=== PATIENT | female | born 2000 | race Caucasian/White ===

== ENCOUNTER 2021-09-13 15:58 | Outpatient (NON) | payer BC, SELFPAY | END 2021-09-13 15:59 | disposition home or self-care (01) | PROVIDERS: Visit Provider Nurse Practitioner Family | DX: Z12.4 Encounter for screening for malignant neoplasm of cervix (principal); Z13.89 Encounter for screening for other disorder | CPT/HCPCS: 87491; 87591; 88175; G0145 ==

== ENCOUNTER 2022-02-28 05:03 | Emergency (ER) | payer BC, SELFPAY ==
[2022-02-28 05:10] VITALS: BP 119/92; PULSE 91; RESP 18; TEMP 36.9; O2SAT 99
[2022-02-28] MEDS: ONDANSETRON HCL ODT 4 MG TABLET PO (05:26)
[2022-02-28] MEDS: ACETAMINOPHEN 500 MG TABLET 1000 MG PO (05:26)
[2022-02-28 05:30] VITALS: O2SAT 96
--- NOTE | 2022-02-28 06:30 | ED.URI ---
HPI - URI/Sore Throat General Chief Complaint: Upper Respiratory Infection Stated Complaint: sore throat, decreased po intake, v/d, body aches Time Seen by Provider: 02/28/22 05:10 History of Present Illness HPI Narrative: 21-year-old female who is unvaccinated for COVID presents here with 1 to 2 days of sore throat, nausea and vomiting and diarrhea, and all over body aches, she has tried taking some Mucinex and Benadryl with only minimal improvement, she is having trouble keeping things down. Unknown sick contacts. Related Data Allergies Allergy/AdvReac Type Severity Reaction Status Date / Time No Known Allergies Allergy Verified 02/21/22 15:18 Review of Systems Review of Systems: CONST: Chills. HEENT: Sore throat C/V: No chest pain RESP: Minimal cough GI: Reports nausea, vomiting[, diarrhea] : No dysuria. M/S: Body aches SKIN: No rash. NEURO: No focal numbness or weakness PSYCH: [No depression] [facility] Past Medical History Medical History (Updated 02/28/22 @ 06:50 by Padma Vega MD) Depression Social History Social History Smoking status: Never smoker Exam Narrative: EXAMINATION OF ORGAN SYSTEMS/BODY AREAS: Constitutional: Vital signs per nursing GENERAL:[No acute distress, non-toxic appearing.] HEAD: Normal with no signs of head trauma. EYES: EOMI, conjunctiva normal ENT: No tonsillar exudates or swelling, normal voice LUNGS: Nonlabored breathing. HEART: [Regular rate and rhythm] ABD: [Soft], [nontender to palpation] EXT: Normal range of motion SKIN: [No rashes or lesions.] NEURO: [Alert and oriented x 3. No gross focal sensory or strength deficits.] PSYCH: Normal affect Course Vital Signs Vital signs: Vital Signs Temperature 98.5 F 02/28/22 05:10 Pulse Rate 91 02/28/22 05:10 Respiratory Rate 18 02/28/22 05:10 Blood Pressure 119/92 H 02/28/22 05:10 Pulse Oximetry 99 02/28/22 05:10 Oxygen Delivery Room Air 02/28/22 05:10 Temperature 98.5 F 02/28/22 05:10 Pulse Rate 91 02/28/22 05:10 Respiratory Rate 18 02/28/22 05:10 Blood Pressure 119/92 H 02/28/22 05:10 Pulse Oximetry 96 02/28/22 05:30 Oxygen Delivery Room Air 02/28/22 05:30 MDM - URI/Sore Throat MDM Narrative Medical decision making narrative: 21-year-old female with several days of symptoms most suggestive of viral syndrome with URI symptoms as well as vomiting and diarrhea. Lungs are clear bilaterally. Patient is treated symptomatically with ondansetron, tylenol. On reevaluation, patient still feels some stomach upset. She is given additional round of medications. Afterwards feels better and tolerating oral intake. COVID and flu are negative. Patient is comfortable going home and discharged home in stable condition with expectant management and return precautions. Procedures: Pulse oximetry interpretation - not hypoxic. Review of medical records. Lab Data Labs: Lab Results 02/28/22 Range/Units 05:58 Influenza A (RT-PCR) Negative (Negative) Influenza B (RT-PCR) Negative (Negative) SARS-CoV-2 RNA (RT-PCR) Negative Discharge Plan Discharge Clinical Impression: Viral illness Patient Disposition: Home, Self-Care Condition: Stable Instructions: Antibiotic Form, Viral Syndrome (ED) Additional Instructions: You can take the prescribed medications to feel better, come back if you are feeling worse, follow-up with her primary care doctor in the next few days. Prescriptions: New ondansetron 4 mg tablet,disintegrating 4 mg PO Q8H PRN (Reason: nausea and vomiting) Qty: 10 0RF famotidine 20 mg tablet 20 mg PO DAILY Qty: 14 0RF acetaminophen [Tylenol Extra Strength] 500 mg tablet 1,000 mg PO Q6H PRN (Reason: fever or pain) Qty: 30 0RF loratadine 10 mg tablet 10 mg PO DAILY Qty: 14 0RF No Action norgestimate-ethinyl estradiol [Tri-Sprintec (28)] 0.18/0.215/0.25 mg-35 mcg
[2022-02-28] MEDS: diphenhydrAMINE HCl CAP 25 MG CAPSULE 50 MG PO (06:34)
[2022-02-28] MEDS: METOCLOPRAMIDE HCL INJ 10 MG/2 ML VIAL IM (06:35)
[2022-02-28 06:40] LABS: Influenza A QL RT-PCR Negative (Negative); Influenza B QL RT-PCR Negative (Negative); SARS-CoV-2 RNA PCR Negative
[2022-02-28 06:51] VITALS: BP 122/94; PULSE 91; RESP 18; O2SAT 97
== END 2022-02-28 06:59 | disposition home or self-care (01) ==
PROVIDERS: Emergency Provider Emergency Medicine; PCP Nurse Practitioner Family
DX: B34.9 Viral infection, unspecified (principal); Z20.822 Contact with and (suspected) exposure to COVID-19; Z28.310 Unvaccinated for COVID-19
CPT/HCPCS: 87502; 96372; 99283; A9270; C9803; J2765; U0003; U0005

== ENCOUNTER 2022-03-01 19:16 | Emergency (ER) | payer BC, SELFPAY ==
[2022-03-01 19:21] VITALS: BP 136/93; PULSE 99; RESP 16; TEMP 37.1; O2SAT 100
--- NOTE | 2022-03-01 19:39 | ED.URI ---
HPI - URI/Sore Throat General Chief Complaint: Upper Respiratory Infection Stated Complaint: Sore throat Time Seen by Provider: 03/01/22 19:25 Source: patient Mode of arrival: ambulatory Limitations: no limitations History of Present Illness HPI Narrative: Ms. Salcido is a 21-year-old female patient presenting to the clinic today with complaints of sore throat x3 days. She reports that today she started to lose her voice when talking. She was seen in the ER 2 days ago and was tested for COVID and influenza for her cold symptoms. She reports that those tests were negative but, they did not test her for strep at that time. She would like to be tested for strep today MD elicited complaint: sore throat and nasal congestion Related Data Allergies Allergy/AdvReac Type Severity Reaction Status Date / Time No Known Allergies Allergy Verified 03/01/22 19:39 Review of Systems Review of Systems: Pertinent positives per HPI. Patient denies any fever, chills, rash, headache, visual changes, dizziness, shortness of breath, chest pain, palpitations, nausea, vomiting, diarrhea, constipation, abdominal pain, or any urinary issues. [facility] Past Medical History Medical History (Updated 03/01/22 @ 19:46 by Morales Zurita APRN) Depression Social History Social History Smoking status: Never smoker Comments At the time of my signature, I reviewed and agree with the nursing past medical, surgical, social, and family history. There is no relevant family history pertinent to the patient complaint. Exam Narrative: General: Well-developed, well nourished, in no apparent distress Head: Normocephalic, atraumatic Eyes: Pupils equally round and reactive to light bilaterally, EOM intact, sclera and conjunctive clear, no discharge, lids normal Ears: TMs intact and clear, ear canals clear, no drainage, grossly hearing normal. Nose: Nares patent, no nasal discharge, mild inflammation, no sinus tenderness. Mouth: Oral pharynx without lesions or masses, good dentition, MMM. Oropharynx red, postnasal drip Neck: Supple, trachea midline, no enlargement of anterior or posterior cervical nodes, no thyroid masses or goiter palpable. Cardio: Regular rate and rhythm, s1 and s2 normal, no murmur appreciated. Resp: Clear to auscultation bilaterally, no rhonchi, rales, wheezing or rubs Course Course Emergency Course: Portions of this record may have been created with voice recognition software. Level of Care: Express Care Visit Vital Signs Vital signs: Vital Signs Temperature 37.1 C 03/01/22 19:21 Pulse Rate 99 03/01/22 19:21 Respiratory Rate 16 03/01/22 19:21 Blood Pressure 136/93 H 03/01/22 19:21 Pulse Oximetry 100 03/01/22 19:21 Oxygen Delivery Room Air 03/01/22 19:21 Temperature 37.1 C 03/01/22 19:21 Pulse Rate 99 03/01/22 19:21 Respiratory Rate 16 03/01/22 19:21 Blood Pressure 136/93 H 03/01/22 19:21 Pulse Oximetry 100 03/01/22 19:21 Oxygen Delivery Room Air 03/01/22 19:21 Vital signs reviewed MDM - URI/Sore Throat MDM Narrative Medical decision making narrative: At the time of visit patient is resting comfortably on the exam table. She had COVID testing and influenza testing earlier this week in the ED and it was negative. I suspect the patient has a URI as her strep test was negative. Supportive measures were discussed with the patient she voiced understanding of discharge instructions and agrees to treatment plan. Differential Diagnosis Differential diagnosis: Likely upper respiratory infection, sinusitis, viral infection, bronchitis, influenza, pharyngitis and other (COVID) Discharge Plan Discharge Clinical Impression: URI (upper respiratory infection), PND (post-nasal drip), Pharyngitis Patient Disposition: Home, Self-Care Condition: Stable Instructions: Antibiotic Form, Pharyngitis (ED), Cold Symptoms (ED),
== END 2022-03-01 19:47 | disposition home or self-care (01) ==
PROVIDERS: Emergency Provider Nurse Practitioner Family
DX: J06.9 Acute upper respiratory infection, unspecified (principal); R09.82 Postnasal drip; J02.9 Acute pharyngitis, unspecified; F32.A Depression, unspecified
CPT/HCPCS: 82948; 87081; 87880; 99213; G0463

== ENCOUNTER 2022-06-26 08:26 | Emergency (ER) | payer BC, SELFPAY ==
[2022-06-26 09:04] VITALS: BP 114/79; PULSE 79; RESP 16; TEMP 36.8; O2SAT 100
--- NOTE | 2022-06-26 09:24 | ED.EYEPROB ---
HPI - Eye Problem General Chief complaint: Eye Problems Stated complaint: swollen eyes and lips Time Seen by Provider: 06/26/22 09:24 Source: patient Mode of arrival: ambulatory Limitations: no limitations History of Present Illness HPI Narrative: 21-year-old female presented for complaint of bilateral eye swelling for 3 days. She endorses when she woke 3 days ago she had left eye swelling, she took Benadryl and applied cool compresses. She woke the next day with right eye swelling, and since then her upper lip has mild swelling as well. She denies difficulty breathing, tongue swelling, shortness of breath or wheezing. Denies FB sensation, photophobia or visual changes. She states she has no changes in soap, lotion, make-up or detergent. She does states she had her eyebrows done 2 days before the start of symptoms. She contacted that facility and was told they did nothing different from previous treatments. MD chief complaint: eye pain Related Data Allergies Allergy/AdvReac Type Severity Reaction Status Date / Time No Known Allergies Allergy Verified 06/26/22 09:21 Review of Systems Review of Systems: CONSTITUTIONAL: Denies body aches, fever, chills EYES:Endorses swelling, redness to eye lids ENT: Denies rhinorrhea, congestion, sore throat, or otalgia. CARDIOVASCULAR: Denies chest pain, palpitations RESPIRATORY: Denies cough or dyspnea. GASTROINTESTINAL: Denies abdominal pain, nausea, vomiting, or diarrhea. SKIN: Denies wounds. MUSCULOSKELETAL: Denies back pain, joint pain, or myalgia. NEUROLOGIC: Denies headache, numbness, tingling, or weakness. All systems reviewed & are unremarkable except as noted in HPI and below [facility] Past Medical History Medical History Depression Social History Social History Smoking status: Never smoker Alcohol intake: current Alcohol use details: social Substance use: never Substance use type: does not use Gender identity (if verbalized by the patient): Female Comments At time of signature, I have reviewed and agree with nursing past medical, surgical, social and family history unless otherwise noted. Please see nursing chart for further information. There is no relevant family history pertinent to the presenting complaint Exam Narrative: GENERAL: Well-appearing HEAD: Normocephalic, atraumatic. EYES: Bilateral eye lid swelling/redness, left upper eye lid with scaly skin no open areas; No conjunctival injection. PERRLA, EOMI. Lid eversion no FB. ENT: Mucous membranes pink and moist. No rhinorrhea. TMs normal bilaterally. Throat normal. Uvula midline. CHEST: Clear to auscultation. HEART: Regular rate and rhythm. ABDOMEN: Soft, nontender, nondistended SKIN: Warm, dry, no rash. Normal skin turgor. NEURO: No focal deficits. Alert and oriented x3 Course Course Emergency Course: Patient is aware of diagnosis, understands and agrees to treatment plan. Anticipatory guidance given. Patient agrees to follow-up as directed and is aware of reasons to seek care at the emergency department. Portions of this record may have been created with voice recognition software Level of Care: Express Care Visit Vital Signs Vital signs: Vital Signs Temperature 98.2 F 06/26/22 09:04 Pulse Rate 79 06/26/22 09:04 Respiratory Rate 16 06/26/22 09:04 Blood Pressure 114/79 06/26/22 09:04 Pulse Oximetry 100 06/26/22 09:04 Oxygen Delivery Room Air 06/26/22 09:04 Temperature 98.2 F 06/26/22 09:04 Pulse Rate 79 06/26/22 09:04 Respiratory Rate 16 06/26/22 09:04 Blood Pressure 114/79 06/26/22 09:04 Pulse Oximetry 100 06/26/22 09:04 Oxygen Delivery Room Air 06/26/22 09:04 MDM - Eye Problem MDM Narrative Medical decision making narrative: Advised supportive measures and signs/symptoms to go to the ER. Pt is appropriate for outp
== END 2022-06-26 09:37 | disposition home or self-care (01) ==
PROVIDERS: Emergency Provider Nurse Practitioner Family; PCP Nurse Practitioner Family
DX: H02.846 Edema of left eye, unspecified eyelid (principal); H02.843 Edema of right eye, unspecified eyelid
CPT/HCPCS: 99213; G0463

== ENCOUNTER 2024-03-25 06:36 | Outpatient (CLI) | payer BC, SELFPAY ==
[2024-03-25 19:15] LABS: Hematocrit 42.8 % (37.0-47.0); Hemoglobin 13.4 g/dL (12.0-15.0); Mean Corpuscular HGB Conc 31.3 g/dl (32-36); Mean Corpuscular Hemoglobin 30.8 pg (26-34); Mean Corpuscular Volume 98.4 fl (80-100); Mean Platelet Volume 11.1 fl (7.4-10.4); Platelet Count Result 252 k/mm3 (150-375); Red Blood Count 4.35 M/mm3 (4.2-5.4); Red Cell Distribution Width 12.6 % (11.5-14.5); White Blood Count 5.3 K/mm3 (4.5-10.0)
[2024-03-25 19:51] LABS: Alanine Aminotransferase 18 U/L (6-35); Albumin Level 4.4 g/dL (3.5-5.1); Alkaline Phosphatase 52 U/L (38-126); Anion Gap 7 mmol/L (4-12); Aspartate Amino Transferase 108 U/L (14-36); Bilirubin,Total 0.6 mg/dL (0.2-1.3); Blood Urea Nitrogen 12 mg/dL (7-17); Calcium 9.2 mg/dL (8.4-10.2); Carbon Dioxide 27 mmol/L (22-30); Chloride 106 mmol/L (98-107); Cholesterol 143 mg/dL (0-200); Estimated Glomerular Filt Rate > 60; Glucose 76 mg/dL (65-110); HDL Direct 61 mg/dL; Potassium 3.6 mmol/L (3.4-5.0); Sodium 140 mmol/L (137-145); Triglycerides 48 mg/dL (<150)
[2024-03-25 19:52] LABS: LDL Cholesterol Direct 68 mg/dL
== END 2024-03-25 06:37 | disposition home or self-care (01) ==
LOC: ANHBWCLAB 06:38
PROVIDERS: PCP Nurse Practitioner Adult Health; Visit Provider Nurse Practitioner Adult Health
DX: Z13.9 Encounter for screening, unspecified (principal)
CPT/HCPCS: 36415; 80053; 80061; 84443; 85027

== ENCOUNTER 2024-04-03 07:54 | Outpatient (CLI) | payer BC, SELFPAY ==
--- NOTE | ~2024-04-03 | US_ITS ---
Limited Abdominal Sonogram: Real-time sonographic imaging of the right upper quadrant was performed. Clinical History: Abnormal serum enzyme levels Findings: The liver appears normal with no evidence of mass lesion or bile duct dilatation. Main por ulysses vein demonstrates normal direction of flow. The gallbladder is well distended, and appears normal with no evidence of gallstone or wall thickening. The common bile duct measures 2 mm. The visualize d pancreas, aorta, and IVC are unremarkable. Right kidney measures 9.7 cm in length, without hydronep hrosis or renal stone. Impression: No significant abnormality seen. Reviewed, dictated and finalized at location . Impression: No significant abnormality seen.
== END 2024-04-03 07:55 ==
LOC: MICIMG 07:55
PROVIDERS: PCP Nurse Practitioner Adult Health; Visit Provider Nurse Practitioner Adult Health
DX: R74.8 Abnormal levels of other serum enzymes (principal)
CPT/HCPCS: 76705

== ENCOUNTER 2024-11-02 12:50 | Outpatient (CLI) | payer BC, SELFPAY ==
--- NOTE | ~2024-11-02 | XR_ITS ---
CHEST RADIOGRAPH, PA AND LATERAL CLINICAL HISTORY: J20.9 - Acute bronchitis, unspecified . COMPARISON: 03/07/2023 TECHNIQUE: PA and lateral views of the chest. FINDINGS The cardiomediastinal silhouette is unremarkable. The lungs are clear. Visualized osseous structures and soft tissues are unremarkable. IMPRESSION: No focal infiltrate or effusion. Reviewed, dictated and finalized at location A. [facility]
== END 2024-11-02 12:51 | disposition home or self-care (01) ==
LOC: ANHBWCIMG 12:51
PROVIDERS: PCP Nurse Practitioner Adult Health; Visit Provider Nurse Practitioner Adult Health
DX: J20.9 Acute bronchitis, unspecified (principal)
CPT/HCPCS: 71046

== ENCOUNTER 2025-03-30 14:58 | Outpatient (CLI) | payer BC, SELFPAY ==
[2025-03-30 20:44] LABS: Add Urine Microscopic? YES; Appearance Urine Cloudy (Clear); Glucose Urine UA Negative (Negative); Leukocyte Esterase Ur Trace LEU/UL (Negative); Need Manual Microscopic Reviewed; Nitrate Urine Negative (Negative); Specific Grav Ur 1.038 (1.001-1.035)
== END 2025-03-30 14:59 | disposition home or self-care (01) ==
LOC: ANHBWCLAB 15:00
PROVIDERS: PCP Nurse Practitioner Adult Health; Visit Provider Nurse Practitioner Adult Health
DX: R39.9 Unspecified symptoms and signs involving the genitourinary system (principal)
CPT/HCPCS: 81001; 87086